=== PATIENT | female | born 1960 | race Caucasian/White ===

== ENCOUNTER 2020-05-24 07:15 | Emergency (ER) | payer BC, SELFPAY ==
[2020-05-24] MEDS ORDERED: Ketorolac Tromethamine 30 MG/ML VIAL ONE (07:23)
--- NOTE | 2020-05-24 08:07 | RAD ---
Exam: Left elbow 2 views HISTORY: Injury with pain following a fall. COMPARISON: None FINDINGS: Very suboptimal evaluation of the left elbow. No evidence for fracture, dislocation, or other significant acute osseous abnormality. IMPRESSION: No significant acute process. Limited study technically. If the patient has any persistent pain or concern for injury to the left elbow, follow-up complete 4 view elbow x-ray exam is recommended. Transcribed Date/Time: 05/24/2020 8:16 AM
--- NOTE | 2020-05-24 08:10 | RAD ---
Exam: Left shoulder 3 views: HISTORY: Injury from a fall COMPARISON: None FINDINGS: Comminuted fracture involving the left humeral head and neck without dislocation or significant malal ignment. IMPRESSION: Comminuted fracture left humeral head and neck without significant malalignment or dislocation.
== END 2020-05-24 08:34 | disposition home or self-care (01) ==
LOC: ERS 07:15
DX: S42.212A Unspecified displaced fracture of surgical neck of left humerus, initial encounter for closed fracture (principal); W18.30XA Fall on same level, unspecified, initial encounter
CPT/HCPCS: 96374; J1885

== ENCOUNTER 2020-05-30 16:53 | Outpatient (CLI) | payer OTHER ==
[2020-05-31 02:16] LABS: SARS-CoV-2 MS2 Positive; SARS-CoV-2 N Gene Negative; SARS-CoV-2 S Gene Negative; SARS-CoV-2 by NAA Not Detected (NotDetected); SARS-CoV-2 orf1ab Negative
== END 2020-05-30 16:54 | disposition home or self-care (01) ==
LOC: LABBT 16:53
PROVIDERS: ATTEND Orthopaedic Surgery
DX: Z01.812 Encounter for preprocedural laboratory examination (principal); Z20.828 Contact with and (suspected) exposure to other viral communicable diseases; S42.202A Unspecified fracture of upper end of left humerus, initial encounter for closed fracture
CPT/HCPCS: 87635; U0003

== ENCOUNTER 2020-06-02 10:49 | Day surgery (SDC) | payer OTHER, SELFPAY ==
[2020-06-01 12:58] VITALS: BMI 23.6
[2020-06-02] MEDS ORDERED: Lidocaine 1% PF 5 ML VIAL ONE (10:58)
[2020-06-02] MEDS ORDERED: PHENYLEPHRINE-NS 100 MCG/ML 10 ML SYRINGE ONE (10:58)
[2020-06-02] MEDS ORDERED: Ropivacaine 0.5% HCl/PF (150 MG/30 ML VIAL) ONE (10:58)
[2020-06-02] MEDS ORDERED: Rocuronium Bromide 10 MG/ML (10ML VIAL) ONE (10:58)
[2020-06-02] MEDS ORDERED: Ropivacaine 0.2% HCl/PF (40 MG/20 ML VIAL) ONE (10:58)
[2020-06-02] MEDS ORDERED: Metoclopramide HCl 10 MG/2 ML VIAL ONE (10:58)
[2020-06-02] MEDS ORDERED: PROPOFOL 200 MG/20 ML VIAL ONE (10:58)
[2020-06-02] MEDS ORDERED: Ondansetron PF 4 MG/2 ML Vial ONE (10:58)
[2020-06-02] MEDS ORDERED: traMADol HCl 50 MG TAB PO PRN ×2 (13:30)
[2020-06-02] MEDS ORDERED: Ondansetron PF 4 MG/2 ML Vial IVP PRN (13:30)
[2020-06-02] MEDS ORDERED: Ropivacaine 0.2% 550 ML 550 ML NERVE BLCK SCH (13:30)
[2020-06-02] MEDS ORDERED: Promethazine HCl 25 MG/ML VIAL IM PRN (13:30)
[2020-06-02] MEDS ORDERED: Zolpidem Tartrate 5 MG TAB PO PRN (13:30)
[2020-06-02] MEDS ORDERED: HYDROcodone/Acetaminophen 10/325 mg Tablet PO PRN ×2 (13:30)
[2020-06-02] MEDS ORDERED: Fentanyl 100 MCG/2 ML VIAL ONE (13:57)
[2020-06-02] MEDS ORDERED: Famotidine/PF 20 mg/2ml Vial ONE (13:57)
[2020-06-02] MEDS ORDERED: Midazolam HCl 2 mg/2 ml Vial ONE (13:57)
[2020-06-02] MEDS ORDERED: SUGAMMADEX SODIUM 200 MG/2 ML VIAL ONE (13:58)
[2020-06-02] MEDS ORDERED: Ketorolac Tromethamine 30 MG/ML VIAL IVP SCH (18:00)
--- NOTE | 2020-06-02 19:28 | RAD ---
LEFT HUMERUS TWO VIEWS: 06/02/20 HISTORY: Postop. These C-arm views show open reduction and internal fixation of proximal humeral fracture with plate a nd screws. IMPRESSION: 1. Postop change. 2. Incidental note is made of a linear radiopaque foreign body in the axillary region, presumabl y this is extrinsic to the patient. POS: LEXIE
--- NOTE | 2020-06-02 20:18 | OP ---
DATE OF PROCEDURE: 06/02/2020 PROCEDURES PERFORMED: Open reduction and internal fixation of left proximal humerus fracture. PREOPERATIVE DIAGNOSIS: Displaced left three-part proximal humerus fracture. POSTOPERATIVE DIAGNOSIS: Displaced left three-part proximal humerus fracture. COMPLICATIONS: None. ESTIMATED BLOOD LOSS: 100 mL. PARTICLE BOARD SUPERVISOR: Peña Hill PA-C IMPLANTS: Synthes proximal humeral plate with multiple locking and nonlocking screws. INDICATIONS: Ms. Brooke is a 59-year-old female, who has fallen and fractured her left proximal humerus. She has been indicated for open reduction and internal fixation to restore anatomic alignment and promote healing and prevent complications. Risks have been reviewed, which to include nonunion, avascular necrosis, malunion, hardware loosening, need for hardware removal, and others. DESCRIPTION OF PROCEDURE: Ms. Brooke was identified in the preoperative holding area. Her correct extremity was marked. She was carried to the operating room. She was positioned supine. General anesthesia was induced. A multidisciplinary time-out was performed. The left upper extremity was prepped and draped in sterile fashion. We began the procedure with a deltopectoral approach to the proximal humerus. We dissected down through the subcutaneous tissues to the fascia, which was opened. We developed the deltopectoral interval. At this point, we proceeded to work more deeply down to the bony level. We cleared the bony edges. We encountered the comminuted fracture. We placed an Ethibond suture in the lesser tuberosity at the subscapularis insertion followed by two sutures in the supraspinatus and teres minor. This allowed us to help reduction of the humeral head, which was comminuted and displaced. We reduced the head back to the shaft and corrected rotation. At this point, we applied our lateral anterior plate. We applied a K-wire and then, a distal screw in the shaft. This allowed us to take x-ray images and confirmed we had a good reduction with adequate hardware placement. We placed multiple locking screws proximally and distally filling all screw holes. Next, we tied our Ethibond suture through the plate further stabilizing our tuberosities to the plate. We took final images. We thoroughly irrigated with copious lavage. We then closed in layers. A sterile dressing was applied. The cardiology physician assistant surgeon was responsible for positioning the patient, preparing the injured extremity, applying the tourniquet, and assisting in preparation for surgery. The cardiology physician assistant was instrumental in reducing the injured limb by applying traction and reduction maneuvers as well as holding retractors and reduction tools. The cardiology physician assistant also was instrumental in assisting in exposure throughout the operation using appropriate retractors. The cardiology physician assistant participated in closure of the operative site as well as dressing application and splint application. Job ID: [id number]
== END 2020-06-02 18:46 | disposition home or self-care (01) ==
LOC: SDC 10:49
PROVIDERS: ATTEND Orthopaedic Surgery
PROC: 3E0T3BZ Introduction of Anesthetic Agent into Peripheral Nerves and Plexi, Percutaneous Approach (ICD-10-PCS; principal; 2020-06-02)
PROC: 0PSD04Z Reposition Left Humeral Head with Internal Fixation Device, Open Approach (ICD-10-PCS; principal; 2020-06-02)
DX: S42.292A Other displaced fracture of upper end of left humerus, initial encounter for closed fracture (principal); G89.18 Other acute postprocedural pain; J45.909 Unspecified asthma, uncomplicated; Z79.899 Other long term (current) drug therapy; Z88.1 Allergy status to other antibiotic agents; Z88.6 Allergy status to analgesic agent; Z91.012 Allergy to eggs; W01.0XXA Fall on same level from slipping, tripping and stumbling without subsequent striking against object, initial encounter; Y92.009 Unspecified place in unspecified non-institutional (private) residence as the place of occurrence of the external cause
CPT/HCPCS: 76000; A4306; C1713; J0690; J2250; J2405; J2704; J2765; J2795; J3010; S0028